=== PATIENT | female | born 1930 | race African-American/Black ===

== ENCOUNTER 2017-05-10 15:30 | Emergency (ER) | payer OTHER ==
[~2017-05-10] VITALS: Ht 149.9 cm; Wt 44.0 kg
[2017-05-10 15:31] VITALS: BP 192/73
[2017-05-10] MEDS ORDERED: ATOR20TA PO (15:35)
[2017-05-10] MEDS ORDERED: METO25TE2 PO (15:35)
[2017-05-10] MEDS ORDERED: LEVO0.114 PO (15:35)
[2017-05-10] MEDS ORDERED: CLON0.3T23 PO (15:36)
[2017-05-10] MEDS ORDERED: TRAM50TA1 PO (15:36)
[2017-05-10] MEDS ORDERED: HYDR100T79 PO (15:36)
--- NOTE | 2017-05-10 15:46 | NUR ---
PATIENT BED11 AT THIS TIME.
--- NOTE | 2017-05-10 16:00 | NUR ---
86f bib family with c/o 6/10 "sharp" constant right side of head pain s/p fall 5 days ago. Per daughter, patient has tried OTC with no relief. Per daughter, pt had a unwitness fall 5 days ago, patient taking a bath, slipped and missed a step, and fall foward, hitting her head on bathroom handle. mild swelling and ecchymosis noted right side of forehead. Pt denies any LOC or vomitting s/p fall. Pt is aox4. Patient is at neuro baseline, per daughter. Pt with hx of dementia. RR are even and unlabored. Pt denies any cp or sob. Pt positioned to comfort, bed down. NAD. All needs met at this time. Will continue to monitor.
--- NOTE | 2017-05-10 16:16 | NUR ---
er md martin by bedside examing patient
--- NOTE | 2017-05-10 16:47 | NUR ---
pt to ct via [facility] accompanied by radiology receptionist
--- NOTE | 2017-05-10 17:06 | NUR ---
pt returned from [facility] via [email or web address] accompanied by magnetic resonance technologist
[2017-05-10 17:24] LABS: BASOPHILS # (AUTO) 0.2 K/uL (0.00-0.22); BASOPHILS % (AUTO) 2.4 % (0.0-2.0); EOSINOPHILS # (AUTO) 0.3 K/uL (0-0.4); EOSINOPHILS % (AUTO) 3.9 % (0.0-4.0); HEMOGLOBIN 10.1 g/dL (12.0-16.0); LYMPHOCYTES # (AUTO) 2.4 K/uL (2.5-16.5); LYMPHOCYTES % (AUTO) 34.6 % (20.5-51.1); MEAN CORPUSCULAR HEMOGLOBIN 29 pg (27-31); MEAN CORPUSCULAR HGB CONC 34 g/dL (33-37); MEAN CORPUSCULAR VOLUME 87 fL (80-94); MONOCYTES # (AUTO) 0.7 K/uL (0.8-1.0); MONOCYTES % (AUTO) 9.4 % (1.7-9.3); NEUTROPHILS # (AUTO) 3.4 K/uL (1.8-7.7); NEUTROPHILS % (AUTO) 49.7 % (42.2-75.2); PLATELET COUNT (AUTO) 284 K/uL (140-450); RED BLOOD CELL COUNT(AUTO) 3.45 MIL/uL (4.20-5.40); RED CELL DISTRIBUTION WIDTH 12.7 % (11.6-13.7)
[2017-05-10 17:35] LABS: ANION GAP 10.4 (8-16); CARBON DIOXIDE 29.6 mmol/L (21-32); CHLORIDE 105 mmol/L (98-107); CREATININE 1.3 mg/dL (0.6-1.3); GLUCOSE 95 mg/dL (74-106); SODIUM SERUM 141 mmol/L (136-145); UREA NITROGEN, BLOOD 16 mg/dL (7-18)
[2017-05-10 17:41] LABS: PROTHROMBIN TIME 10.5 secs (10.8-13.4)
[2017-05-10 17:50] LABS: ALBUMIN 3.7 g/dL (3.4-5.0); ASPARTATE AMINOTRANSFERASE 18 U/L (15-37); THYROID STIMULATING HORMONE 0.09 uIU/mL (0.34-3.74); TOTAL BILIRUBIN 0.3 mg/dL (0.0-1.0)
[2017-05-10 18:30] VITALS: BP_DIAS 71
--- NOTE | 2017-05-10 18:30 | NUR ---
Patient discharged with v/s stable. Written and verbal after care instructions given and explained. Patient verbalized understanding. Ambulatory with steady gait. All questions addressed prior to discharge. Advised to follow up with PMD.
[2017-05-10 18:52] VITALS: BP_SYST 187
== END 2017-05-10 18:30 | disposition home or self-care (01) ==
LOC: MED 15:30
DX: S00.83XA Contusion of other part of head, initial encounter (principal); F03.90 Unspecified dementia, unspecified severity, without behavioral disturbance, psychotic disturbance, mood disturbance, and anxiety; I10 Essential (primary) hypertension; Z90.710 Acquired absence of both cervix and uterus; Z88.0 Allergy status to penicillin; Z88.2 Allergy status to sulfonamides; W22.8XXA Striking against or struck by other objects, initial encounter; Y93.89 Activity, other specified; Y92.89 Other specified places as the place of occurrence of the external cause; Y99.8 Other external cause status
CPT/HCPCS: 36415; 70450; 71045; 80053; 84443; 84484; 85025; 85610; 85730; 93005; 99285